=== PATIENT | female | born 1975 ===

== ENCOUNTER 2016-11-22 15:18 | Emergency (ER) | payer SELFPAY ==
[2016-11-22 15:18] VITALS: BMI 29.7
[2016-11-22 16:38] LABS: RBC URINE 6 /hpf (0-3); URINE BACTERIA RARE (<OCC); URINE BILIRUBIN NEGATIVE (NEGATIVE); URINE BLOOD NEGATIVE (NEGATIVE); URINE COLOR Yellow (YELLOW); URINE GLUCOSE (UA) NORMAL (Normal); URINE KETONE NEGATIVE (NEGATIVE); URINE LEUKOCYTE ESTERASE TRACE Leu/uL (Negative); URINE PROTEIN 1+ mg/dL (NEGATIVE); URINE UROBILINOGEN NORMAL mg/dL (0.2-1.0); WBC URINE 1 /hpf (0-5)
--- NOTE | 2016-11-22 18:03 | C.PDOC ---
History Of Present Illness 41 year old female presents to the ED for evaluation of vaginal pain which began yesterday. Patient admits she is sexually active and uses protection. She denies fever, chills, vaginal bleeding, dysuria. Time Seen by Provider: 11/22/16 16:58 Chief Complaint (Nursing): Female Genitourinary History Per: Patient History/Exam Limitations: no limitations Onset/Duration Of Symptoms: Hrs Current Symptoms Are (Timing): Still Present Quality Of Discomfort: "Pain" Associated Symptoms: denies: Fever, Chills, Urinary Symptoms Additional History Per: Patient Abnormal Vaginal Bleeding: No Past Medical History Reviewed: Historical Data, Nursing Documentation, Vital Signs Vital Signs: Last Vital Signs Temp 97.8 F 11/22/16 18:34 Pulse 68 11/22/16 18:34 Resp 20 11/22/16 18:34 BP 111/74 11/22/16 18:34 Pulse Ox 99 11/27/16 19:13 - Medical History PMH: Migraine Surgical History: No Surg Hx - [facility] Procedures MANUAL ASSIST JORGE BANKS (08/19/13) Family History: States: Unknown Family Hx - Social History Hx Tobacco Use: No Hx Alcohol Use: No Hx Substance Use: No - Immunization History Hx Tetanus Toxoid Vaccination: No Hx Influenza Vaccination: No Hx Pneumococcal Vaccination: No Review Of Systems Constitutional: Negative for: Fever, Chills Genitourinary: Positive for: Other (vaginal pain ). Negative for: Dysuria, Vaginal Bleeding Physical Exam - Physical Exam Appears: Non-toxic, No Acute Distress Skin: Normal Color, Warm, Dry Head: Atraumatic, Normacephalic Eye(s): bilateral: Normal Inspection Oral Mucosa: Moist Chest: Symmetrical, No Deformity Cardiovascular: Rhythm Regular Respiratory: Normal Breath Sounds Gastrointestinal/Abdominal: Soft, No Tenderness, No Guarding, No Rebound Pelvic: Vaginal Discharge (minimal, white ) Extremity: Normal ROM Neurological/Psych: Oriented x3, Normal Speech, Normal Cognition Gait: Steady ED Course And Treatment O2 Sat by Pulse Oximetry: 99 (on RA) Pulse Ox Interpretation: Normal Medical Decision Making Medical Decision Making: Plan: * urinalysis * GC/Chlamydia * reassess and disposition Progress: UA and labs ordered. Disposition - Disposition [facility]] Leoncio Vazquez MD [Staff Provider] - Disposition: HOME/ ROUTINE Disposition Time: 06:00 Condition: GOOD Additional Instructions: please follow up with specialist. you may need further diagnostic testing. return to er with worsening symptoms or concern.s Prescriptions: Fluconazole [Diflucan] 150 mg PO ONCE #1 tab Instructions: Bacterial Vaginosis (ED), Safe Sex (ED), Vaginitis (ED) Forms: [employer] ([place]) Print Language: RWANDAN - Clinical Impression Clinical Impression: Vaginal discharge - Scribe Statement The provider has reviewed the documentation as recorded by the Scribe (Aleah Snow) Provider Attestation: All medical record entries made by the Scribe were at my direction and personally dictated by me. I have reviewed the chart and agree that the record accurately reflects my personal performance of the history, physical exam, medical decision making, and the department course for this patient. I have also personally directed, reviewed, and agree with the discharge instructions and disposition.
[2016-11-22 18:35] VITALS: BP 111/74; PULSE 68; RESP 20; TEMP 97.8
[2016-11-22 18:55] VITALS: O2SAT 99
== END 2016-11-22 18:34 | disposition home or self-care (01) ==
LOC: C.ER 15:18
DX: N89.8 Other specified noninflammatory disorders of vagina (principal)

== ENCOUNTER 2017-03-13 01:32 | Emergency (ER) | payer OTHER ==
[2017-03-13 01:56] VITALS: BMI 31.4
[2017-03-13 02:01] VITALS: RESP 18; O2SAT 98
[2017-03-13] MEDS ORDERED: DiphenhydrAMINE 50 mg/ml Inj IVP STA (02:20)
[2017-03-13] MEDS ORDERED: Sodium Chloride 0.9% 1,000 ML IV STA ×2 (02:20→03:37)
[2017-03-13] MEDS ORDERED: DiphenhydrAMINE 50 mg/ml Inj ONE (02:28)
[2017-03-13] MEDS ORDERED: Sodium Chloride 0.9% 1,000 ML ONE (02:29)
--- NOTE | 2017-03-13 04:22 | C.PDOC ---
History Of Present Illness 42 years old female presents to ED with complaints of waking up and feeling itchy, swollen face and lips. Pt describes pain as "heaviness in my mouth." Pt states before she sleeping today she ate rice and shrimp. Denies SOB, tongue or lip swelling, scratchy sensation in throat or change in voice. Chief Complaint (Nursing): Allergic Reaction History Per: Patient History/Exam Limitations: no limitations Onset/Duration Of Symptoms: Hrs Current Symptoms Are (Timing): Still Present Possible Cause: Food Associated Symptoms: Swelling (face ), Itching. denies: Skin Rash, Chest Pain Recent travel outside of the [place]: No Past Medical History Reviewed: Historical Data, Nursing Documentation, Vital Signs Vital Signs: Last Vital Signs Temp 97.5 F L 03/13/17 04:34 Pulse 65 03/13/17 04:34 Resp 18 03/13/17 04:34 BP 111/72 03/13/17 04:34 Pulse Ox 98 03/13/17 06:13 - Medical History PMH: Migraine - [facility] Procedures MANUAL ASSIST JORGE NEC (08/19/13) Family History: States: Unknown Family Hx - Social History Hx Tobacco Use: No Hx Alcohol Use: No Hx Substance Use: No - Immunization History Hx Tetanus Toxoid Vaccination: No Hx Influenza Vaccination: No Hx Pneumococcal Vaccination: No Review Of Systems Constitutional: Negative for: Fever Cardiovascular: Negative for: Chest Pain Gastrointestinal: Negative for: Nausea, Vomiting, Diarrhea Skin: Positive for: Other (Swollen and itchy face and lips). Negative for: Rash Neurological: Negative for: Weakness, Numbness Physical Exam - Physical Exam Appears: Well, Non-toxic, Other (Awake and alert; Speaking in normal voices and complete sentences) Skin: Warm, Dry, Other (Erythema and urticaria on face) Head: Atraumatic, Normacephalic Eye(s): bilateral: Normal Inspection Ear(s): Bilateral: Normal Oral Mucosa: Moist Tongue: No Swelling Throat: No Erythema, No Exudate, Other (airway patent) Neck: Supple Chest: Symmetrical, No Tenderness Cardiovascular: Rhythm Regular Respiratory: No Decreased Breath Sounds, No Accessory Muscle Use, No Rales, No Rhonchi, No Wheezing Gastrointestinal/Abdominal: Soft, No Tenderness Extremity: Bilateral: Normal Color And Temperature Pulses: Left Radial: Normal, Right Radial: Normal Neurological/Psych: Oriented x3, Normal Speech, Normal Cognition ED Course And Treatment O2 Sat by Pulse Oximetry: 98 (RA) Pulse Ox Interpretation: Normal Progress Note: Administered IV fluids, Banadryl IV, Prednisone IV, pepcid IV. On re-evaluation, patient feels better, rahs from face subsided, no difficulty breathing, normal voice, no swelling, no difficulty swallowing. Patient is stable to be d/c home. Disposition - Disposition Referrals: [facility] [Outside] Disposition: HOME/ ROUTINE Disposition Time: 04:19 Condition: STABLE Additional Instructions: Follow up in Clinic within 1-2 days. Return to Ed if feel worse. 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 - Scribe Statement The provider has reviewed the documentation as recorded by the Scribfrancis Oliveira All medical record entries made by the Brooke were at my direction and personally dictated by me. I have reviewed the chart and agree that the record accurately reflects my personal performance of the history, physical exam, medical decision making, and the department course for this patient. I have also personally directed, reviewed, and agree with the discharge instructions and disposition.
[2017-03-13 04:36] VITALS: BP 111/72; PULSE 65; TEMP 97.5
== END 2017-03-13 04:37 | disposition home or self-care (01) ==
LOC: C.ER 01:32
DX: L50.0 Allergic urticaria (principal)
CPT/HCPCS: 82948; 96361; 96374; 96375; 99284; J1200; J2930; J7040